=== PATIENT | male | born 1980 | race Hispanic/Latino ===

== ENCOUNTER 2017-10-02 12:25 | Emergency (ER) | payer OTHER ==
[2017-10-02] MEDS ORDERED: KETOROLAC TROMETHAMINE 60 MG/2 ML VIAL ONE (14:12)
== END 2017-10-02 14:54 | disposition home or self-care (01) ==
LOC: EDH 12:25
DX: S43.492A Other sprain of left shoulder joint, initial encounter (principal); I10 Essential (primary) hypertension; Z88.0 Allergy status to penicillin; Z88.8 Allergy status to other drugs, medicaments and biological substances; X50.9XXA Other and unspecified overexertion or strenuous movements or postures, initial encounter; Y93.89 Activity, other specified; Y92.098 Other place in other non-institutional residence as the place of occurrence of the external cause; Y99.8 Other external cause status
CPT/HCPCS: 73030; 96372; 99284; J1885

== ENCOUNTER → 2017-11-01 | Outpatient (CLI) | payer OTHER ==
[~2017-11-01] MED LIST: ALBUHFA IH; AZIT250T PO; CLIN300C3 PO; HYDR-309 PO; NAPR375T6 PO
== END ==
LOC: SHCH 07:46
PROVIDERS: ATTEND Internal Medicine Cardiovascular Disease
DX: R94.31 Abnormal electrocardiogram [ECG] [EKG] (principal); I10 Essential (primary) hypertension; E78.5 Hyperlipidemia, unspecified; R06.00 Dyspnea, unspecified
CPT/HCPCS: 93306

== ENCOUNTER 2018-01-19 08:27 | Day surgery (SDC) | payer OTHER ==
[2018-01-18 15:01] LABS: BASOPHILS % (AUTO) 0.7 % (0.0-5.0); EOSINOPHILS % (AUTO) 1.9 % (0.0-8.0); HEMATOCRIT 47.3 % (42-54); LYMPHOCYTES % (AUTO) 32.5 % (21.0-51.0); MEAN CORPUSCULAR HEMOGLOBIN 28.4 pg (27.0-33.0); MEAN CORPUSCULAR HGB CONC 34.6 g/dL (32.0-36.0); MEAN CORPUSCULAR VOLUME 82.1 fL (79-99); MONOCYTES % (AUTO) 10.3 % (3.0-13.0); NEUTROPHILS % (AUTO) 54.6 % (40.0-77.0); PLATELET COUNT (AUTO) 285 K/uL (130-400); RED BLOOD CELL COUNT(AUTO) 5.76 MIL/uL (4.50-6.20); WHITE BLOOD COUNT (AUTO) 6.7 K/uL (4.8-10.8)
[2018-01-18 15:02] VITALS: BP 138/80
[2018-01-18 15:09] LABS: CREATININE 1.1 mg/dL (0.5-1.5); POTASSIUM 4.2 mmol/L (3.5-5.1)
[2018-01-19] VITALS (14 sets, daily range): BP systolic 102–133; BP diastolic 59–86
[~2018-01-19] VITALS: Ht 175.3 cm; Wt 108.7 kg
[~2018-01-19 08:27] MED LIST changes: -ALBUHFA IH; -AZIT250T PO; -CLIN300C3 PO; +CLINDAMYCIN 900 MG/D5% WATER 50 ML IV ONE; -HYDR-309 PO; -NAPR375T6 PO
[2018-01-19] MEDS ORDERED: CEFAZOLIN SODIUM 1 GM VIAL ONE (09:49)
[2018-01-19] MEDS ORDERED: LACTATED RINGERS 1000ML 1,000 ML IV ONE (09:50)
[2018-01-19] MEDS ORDERED: CLINDAMYCIN 900 MG/D5% WATER 50 ML IV ONE (09:59)
[2018-01-19] MEDS ORDERED: OCTYL 2-CYANOACRYLATE 1 EACH TP ONE (12:34)
[2018-01-19] MEDS ORDERED: EPINEPHRINE 1 MG/ML 30ML VIAL IJ ONE (12:34)
[2018-01-19] MEDS ORDERED: DEXAMETHASONE SOD PHOSPHATE 10MG/ML 1ML VIAL ONE (12:39)
[2018-01-19] MEDS ORDERED: LIDOCAINE PF 2% 5ML ABBOJECT ONE (12:39)
[2018-01-19] MEDS ORDERED: GLYCOPYRROLATE 0.2 MG/ML 5 ML VIAL ONE (12:39)
[2018-01-19] MEDS ORDERED: NEOSTIGMINE 5MG/5ML SYR IV ONE (12:39)
[2018-01-19] MEDS ORDERED: ONDANSETRON HCL 4 MG/2 ML VIAL ONE ×2 (12:39→16:23)
[2018-01-19] MEDS ORDERED: PROPOFOL 10 MG/ML 20ML VIAL IV ONE (12:40)
[2018-01-19] MEDS ORDERED: MIDAZOLAM HCL 1 MG/ML 2ML VIAL ONE (12:40)
[2018-01-19] MEDS ORDERED: FENTANYL CITRATE PF 50 MCG/1 ML 2ML VIAL ONE ×2 (12:40→12:48)
[2018-01-19] MEDS ORDERED: VECURONIUM BROMIDE 10 MG ML IV ONE (12:43)
[2018-01-19] MEDS ORDERED: ROPIVACAINE 0.5% 5MG/ML 30ML IJ ONE (12:43)
[2018-01-19] MEDS ORDERED: EPHEDRINE SULFATE 50 MG/ML AMPULE ONE (13:33)
[2018-01-19] MEDS ORDERED: NAPR375T6 PO (15:51)
[2018-01-19] MEDS ORDERED: HYDR-309 PO (15:51)
[2018-01-19] MEDS ORDERED: CLIN300C3 PO (15:51)
[2018-01-19] MEDS ORDERED: MEPERIDINE-PF 25 MG/ML SYG ONE ×2 (15:58→16:11)
[2018-01-19] MEDS ORDERED: METOCLOPRAMIDE 10 MG/2 ML VIAL ONE (16:23)
== END 2018-01-19 17:40 | disposition home or self-care (01) ==
LOC: DAH 08:27
PROVIDERS: ATTEND Orthopaedic Surgery
DX: S46.212A Strain of muscle, fascia and tendon of other parts of biceps, left arm, initial encounter (principal); M75.102 Unspecified rotator cuff tear or rupture of left shoulder, not specified as traumatic; M75.42 Impingement syndrome of left shoulder; M19.012 Primary osteoarthritis, left shoulder; X58.XXXA Exposure to other specified factors, initial encounter; Y93.9 Activity, unspecified; Y92.89 Other specified places as the place of occurrence of the external cause; Y99.9 Unspecified external cause status; Z68.37 Body mass index [BMI] 37.0-37.9, adult; I10 Essential (primary) hypertension; Z87.891 Personal history of nicotine dependence; Z98.890 Other specified postprocedural states; Z82.49 Family history of ischemic heart disease and other diseases of the circulatory system; Z88.0 Allergy status to penicillin; Z88.8 Allergy status to other drugs, medicaments and biological substances; E66.01 Morbid (severe) obesity due to excess calories
CPT/HCPCS: 23430; 29824; 29826; 29827; 36415; 80048; 85025; A4218; A4565; A4649 ×3; A4930; A6204; C1713; J0171; J1100; J2001; J2175 ×2; J2250; J2405 ×2; J2704; J2710; J2765; J2795; J3010 ×2; J3490 ×4; J7120 ×2; J0690

== ENCOUNTER 2018-01-20 01:30 | Inpatient (IN) | payer OTHER ==
[~2018-01-20] VITALS: Ht 172.7 cm; Wt 108.9 kg
[~2018-01-20 01:30] MED LIST changes: +CLIN300C3 PO; -CLINDAMYCIN 900 MG/D5% WATER 50 ML IV ONE; +HYDR-309 PO; +NAPR375T6 PO
[2018-01-20 02:01] LABS: BASOPHILS % (AUTO) 0.3 % (0.0-5.0); HEMATOCRIT 48.1 % (42-54); LYMPHOCYTES % (AUTO) 4.2 % (21.0-51.0); MEAN CORPUSCULAR HEMOGLOBIN 28.5 pg (27.0-33.0); MEAN CORPUSCULAR HGB CONC 34.3 g/dL (32.0-36.0); MEAN CORPUSCULAR VOLUME 83.3 fL (79-99); MONOCYTES % (AUTO) 4.2 % (3.0-13.0); NEUTROPHILS % (AUTO) 91.3 % (40.0-77.0); PLATELET COUNT (AUTO) 275 K/uL (130-400); RED BLOOD CELL COUNT(AUTO) 5.77 MIL/uL (4.50-6.20); RED CELL DISTRIBUTION WIDTH 14.4 % (11.0-15.5); WHITE BLOOD COUNT (AUTO) 13.4 K/uL (4.8-10.8)
[2018-01-20] MEDS ORDERED: IPRATROPIUM/ALBUTEROL SULFATE 3 ML SOLUTION IH ONE (02:01)
[2018-01-20 02:11] LABS: CREATININE 1.1 mg/dL (0.5-1.5)
[2018-01-20 02:12] LABS: INR 0.98 (0.85-1.15); PROTHROMBIN TIME 10.3 SEC (9.6-11.6)
[2018-01-20 02:17] LABS: ALBUMIN 4.2 g/dL (3.5-5.0); BILIRUBIN,TOTAL 0.6 mg/dL (0.2-1.0); TOTAL PROTEIN, SERUM 8.5 g/dL (6.0-8.3)
[2018-01-20 02:33] LABS: CREATINE KINASE MB 4.2 ng/mL (0.5-3.6)
[2018-01-20] MEDS ORDERED: IOPAMIDOL-370 100 ML VIAL IV ONE (02:38)
[2018-01-20] MEDS ORDERED: CEFTRIAXONE SODIUM 1 GM ONE (02:40)
[2018-01-20] MEDS ORDERED: AZITHROMYCIN 250 MG TABLET PO ONE (02:42)
[2018-01-20] MEDS ORDERED: KETOROLAC TROMETHAMINE 30MG/ML ONE ×2 (04:26→04:38)
[2018-01-20] MEDS ORDERED: LIDOCAINE HCL-MPF 1% 2ML VIAL IVP PRN (05:45)
[2018-01-20] MEDS ORDERED: POTASSIUM CHLORIDE 10% ELIXIR 20 MEQ/15 ML UDCUP PO PRN (05:45)
[2018-01-20] MEDS ORDERED: DiphenhydrAMINE HCL 50 MG/ML VIAL IV PRN (05:45)
[2018-01-20] MEDS ORDERED: ACETAMINOPHEN 325 MG TAB PO PRN ×3 (05:45→06:00)
[2018-01-20] MEDS ORDERED: POTASSIUM CHLORIDE 20MEQ/100ML 100 ML IV PRN (05:45)
[2018-01-20] MEDS ORDERED: CEFTRIAXONE 1GM/D5W 50ML 50 ML IV SCH (05:45)
[2018-01-20] MEDS ORDERED: AZITHROMYCIN 500MG+NS 250ML 250 ML IV SCH ×2 (05:45→06:00)
[2018-01-20] MEDS ORDERED: POTASSIUM CHLORIDE 20 MEQ ERTAB PO PRN (05:45)
[2018-01-20] MEDS ORDERED: HYDRALAZINE HCL 20 MG/ML VIAL IV PRN (05:45)
[2018-01-20] MEDS ORDERED: CLONIDINE HCL 0.1 MG TABLET PO PRN (06:00)
[2018-01-20] MEDS ORDERED: GUAIFENESIN-DM 200/20 MG 10 ML PO PRN (06:00)
[2018-01-20] MEDS ORDERED: ONDANSETRON HCL MDV 20ML 2 MG/ML VIAL IVP PRN (06:00)
[2018-01-20 06:15] VITALS: BP 154/94
[2018-01-20] MEDS: IPRATROPIUM/ALBUTEROL SULFATE 3 ML SOLUTION IH SCH ×5 (06:57→22:53)
[2018-01-20 08:07] VITALS: BP 142/88
[2018-01-20] MEDS: FAMOTIDINE 20MG TAB 20 MG TAB PO SCH ×2 (08:35→20:21)
[2018-01-20] MEDS: HYDROCODONE/ACETAMINOPHEN 5/325 MG TAB PO PRN ×4 (08:35→21:28)
[2018-01-20] MEDS ORDERED: FAMOTIDINE 20MG TAB 20 MG TAB PO SCH (09:00)
[2018-01-20] MEDS: CLINDAMYCIN HCL 150 MG CAP PO SCH ×3 (10:55→20:21)
[2018-01-20 11:35] VITALS: BP 127/72
[2018-01-20 16:20] VITALS: BP 133/76
[2018-01-20] MEDS: NAPROXEN 250 MG TAB PO SCH ×2 (17:00→17:41)
[2018-01-20 21:14] VITALS: BP 151/75
[2018-01-20 21:20] VITALS: BP 127/72
[2018-01-21 00:47] VITALS: BP 116/64
[2018-01-21] MEDS ORDERED: CEFTRIAXONE SODIUM 1 GM IVP SCH (01:00)
[2018-01-21] MEDS: IPRATROPIUM/ALBUTEROL SULFATE 3 ML SOLUTION IH SCH ×3 (01:31→10:49)
[2018-01-21] MEDS ORDERED: AZITHROMYCIN 500MG+NS 250ML 250 ML IV SCH (02:00)
[2018-01-21] MEDS: HYDROCODONE/ACETAMINOPHEN 5/325 MG TAB PO PRN ×2 (04:45→08:45)
[2018-01-21 04:51] VITALS: BP 105/67
[2018-01-21 07:45] VITALS: BP 113/72
[2018-01-21] MEDS: FAMOTIDINE 20MG TAB 20 MG TAB PO SCH (08:43)
[2018-01-21] MEDS: CLINDAMYCIN HCL 150 MG CAP PO SCH (08:44)
[2018-01-21 10:21] LABS: BASOPHILS % (AUTO) 0.4 % (0.0-5.0); EOSINOPHILS % (AUTO) 0.8 % (0.0-8.0); HEMATOCRIT 44.4 % (42-54); LYMPHOCYTES % (AUTO) 28.4 % (21.0-51.0); MEAN CORPUSCULAR HEMOGLOBIN 28.7 pg (27.0-33.0); MEAN CORPUSCULAR HGB CONC 34.6 g/dL (32.0-36.0); MEAN CORPUSCULAR VOLUME 83.1 fL (79-99); MONOCYTES % (AUTO) 9.4 % (3.0-13.0); PLATELET COUNT (AUTO) 281 K/uL (130-400); RED BLOOD CELL COUNT(AUTO) 5.34 MIL/uL (4.50-6.20); RED CELL DISTRIBUTION WIDTH 14.2 % (11.0-15.5); WHITE BLOOD COUNT (AUTO) 10.8 K/uL (4.8-10.8)
[2018-01-21 10:34] LABS: POTASSIUM 3.7 mmol/L (3.5-5.1)
[2018-01-21] MEDS ORDERED: AZIT250T PO (11:03)
[2018-01-21] MEDS ORDERED: ALBUHFA IH (11:03)
[2018-01-21] MEDS ORDERED: AZITHROMYCIN 250 MG TABLET PO SCH (12:08)
== END 2018-01-21 12:37 | disposition home or self-care (01) | DRG 194 ==
LOC: EDH 01:30 → OBSVTOIN 04:49 → EDHIP 04:49 → 4AH 05:27
PROVIDERS: ADMIT Internal Medicine; ATTEND Internal Medicine
DX: J18.9 Pneumonia, unspecified organism (principal); J98.11 Atelectasis; I10 Essential (primary) hypertension; Z87.891 Personal history of nicotine dependence; Z88.0 Allergy status to penicillin; Z91.018 Allergy to other foods
CPT/HCPCS: 36415; 71045; 71275; 80048; 80053; 82550; 82553; 83880; 84484; 85025; 85378; 85610; 85730; 87804; 93005; 94640; 94664; J0360; J0456; J0696; J1885; Q9967

== ENCOUNTER 2018-09-07 07:50 | Day surgery (SDC) | payer OTHER ==
[2018-09-06 15:39] LABS: BASOPHILS % (AUTO) 0.7 % (0.0-5.0); EOSINOPHILS % (AUTO) 1.7 % (0.0-8.0); HEMATOCRIT 48.1 % (42-54); LYMPHOCYTES % (AUTO) 28.1 % (21.0-51.0); MEAN CORPUSCULAR HEMOGLOBIN 28.9 pg (27.0-33.0); MEAN CORPUSCULAR HGB CONC 33.9 g/dL (32.0-36.0); MEAN CORPUSCULAR VOLUME 85.4 fL (79-99); MONOCYTES % (AUTO) 9.7 % (3.0-13.0); NEUTROPHILS % (AUTO) 59.8 % (40.0-77.0); NUCLEATED RED BLOOD CELLS 0.1 % (0.0-0.19); PLATELET COUNT (AUTO) 212 K/uL (130-400); RED BLOOD CELL COUNT(AUTO) 5.64 MIL/uL (4.50-6.20); RED CELL DISTRIBUTION WIDTH 13.6 % (11.0-15.5); WHITE BLOOD COUNT (AUTO) 6.3 K/uL (4.8-10.8)
[2018-09-06 15:48] LABS: POTASSIUM 4.2 mmol/L (3.5-5.1)
[2018-09-06 15:53] VITALS: BP 151/90
[~2018-09-07] VITALS: Ht 175.3 cm; Wt 105.1 kg
[2018-09-07] VITALS (14 sets, daily range): BP systolic 107–146; BP diastolic 42–91
[2018-09-07] MEDS: CLINDAMYCIN 900 MG/D5% WATER 50 ML IV SCH ×2 (08:00→10:45)
[2018-09-07] MEDS ORDERED: LACTATED RINGERS 1000ML 1,000 ML IV ONE ×2 (08:29→13:22)
--- NOTE | 2018-09-07 08:42 | NUR ---
VALUABLES: CLOTHING, GLASSES, AND CELL PHONE GIVEN TO MOTHER.
[2018-09-07] MEDS ORDERED: ONDANSETRON HCL 4 MG/2 ML VIAL ONE ×2 (10:32→12:49)
[2018-09-07] MEDS ORDERED: LIDOCAINE PF 2% 5ML ABBOJECT ONE (10:32)
[2018-09-07] MEDS ORDERED: ROCURONIUM 10MG/1ML SYR 10 MG/ML ML ONE (10:32)
[2018-09-07] MEDS ORDERED: MIDAZOLAM HCL 1 MG/ML 2ML VIAL ONE (10:32)
[2018-09-07] MEDS ORDERED: GLYCOPYRROLATE 1 MG/5 ML SYRINGE ONE (10:32)
[2018-09-07] MEDS ORDERED: DEXAMETHASONE SOD PHOSPHATE 10MG/ML 1ML VIAL ONE (10:32)
[2018-09-07] MEDS ORDERED: NEOSTIGMINE 5MG/5ML SYR IV ONE (10:32)
[2018-09-07] MEDS ORDERED: PROPOFOL 10 MG/ML 20ML VIAL IV ONE (10:32)
[2018-09-07] MEDS ORDERED: FENTANYL CITRATE PF 50 MCG/1 ML 2ML VIAL ONE ×2 (10:33→10:50)
[2018-09-07] MEDS ORDERED: HYDR-4457 PO (12:09)
[2018-09-07] MEDS ORDERED: METOCLOPRAMIDE 10 MG/2 ML VIAL ONE (13:21)
--- NOTE | 2018-09-07 15:05 | NUR ---
PATIENT AWAKE ALERT ,NO COMPLAINTS OF PAIN ,NO NAUSEA,,INSTRUCTIONS GIVEN TO MOM AND PATIENT , VERBALIZE UNDERSTANDING,,,,TO CAR VIA W/C ACCOMPANIED BY MOM.
--- NOTE | 2018-09-07 16:55 | NUR ---
PATIENT MOTHER CAME BACK TO MAKE US AWARE THAT PRESCRIPTION GIVEN BY DR. MILLER HAD DATE OF 09/07/2017 AND PHARMACY WOULD NOT TAKE IT. CALLED DR. MILLER, HE STATED HE WOULD COME IN TO CORRECT PRESCRIPTION. DR. MILLER IN TO CORRECT PRESCRIPTION,. PRESCRIPTION WAS CORRECTED BY DR. MILLER, CALLED PHARMACY TO VERIFY THEY WOULD ACCEPT PRESCRIPTION WITH CORRECTIONS MADE BY . [facility] PH[facility]IST STATED THEY WOULD TAKE MANUAL CORRECTION MADE BY .
== END 2018-09-07 15:05 | disposition home or self-care (01) ==
LOC: DAH 07:50
PROVIDERS: ATTEND Orthopaedic Surgery
DX: M25.512 Pain in left shoulder (principal); Z98.890 Other specified postprocedural states; Z79.899 Other long term (current) drug therapy; Z87.891 Personal history of nicotine dependence; Z88.8 Allergy status to other drugs, medicaments and biological substances; Z88.0 Allergy status to penicillin
CPT/HCPCS: 23430; 36415; 80048; 85025; A4565; A4649; A4930; A6204; C1713; J1100; J2001; J2250; J2405 ×2; J2704; J2710; J2765; J3010 ×2; J3490 ×2; J7120 ×2

== ENCOUNTER 2023-03-21 15:43 | Emergency (ER) | payer OTHER ==
[~2023-03-21] VITALS: Ht 172.7 cm; Wt 95.3 kg
[~2023-03-21 15:43] MED LIST changes: -CLIN300C3 PO; -HYDR-309 PO; +HYDR-4457 PO; -NAPR375T6 PO
[2023-03-21] MEDS ORDERED: BACL5TAB PO (22:49)
[2023-03-21] MEDS ORDERED: IBUP-2077 PO (22:49)
[2023-03-21 22:56] VITALS: BP 162/84
[2023-03-21] MEDS ORDERED: KETOROLAC 15MG/ML VIAL (15MG/ML) IM ONE (23:00)
== END 2023-03-21 23:39 | disposition home or self-care (01) ==
LOC: EDH 15:43
DX: S16.1XXA Strain of muscle, fascia and tendon at neck level, initial encounter (principal); I10 Essential (primary) hypertension; Z79.899 Other long term (current) drug therapy; Z98.890 Other specified postprocedural states; Z88.0 Allergy status to penicillin; Z88.6 Allergy status to analgesic agent; X58.XXXA Exposure to other specified factors, initial encounter; Y93.89 Activity, other specified; Y92.89 Other specified places as the place of occurrence of the external cause; Y99.8 Other external cause status
CPT/HCPCS: 99283; 72040; 96372; J1885

== ENCOUNTER 2024-11-02 18:53 | Emergency (ER) | payer OTHER ==
[~2024-11-02] VITALS: Ht 172.7 cm; Wt 106.6 kg
[~2024-11-02 18:53] MED LIST changes: +BACL5TAB PO; +IBUP-2077 PO
--- NOTE | 2024-11-02 19:06 | ERN ---
ED Note History of Present Illness Stated Complaint: URINATING BLOOD Chief Complaint: Blood in Urine: Time Seen by MD: 18:58 Time Seen by Midlevel: 19:05 Dictation: Mr Hermosillo is a 44 year old male with history of hypertension (untreated) and obesity who presented to the emergency department for evaluation of blood in urine. He reports one week of blood in his urine. He states initially he just had intermittent pink urine. Now he has had increased bleeding with clots. He initially stated there was no pain with urination but now states he has some stinging at the end of his stream. He states he has been avoiding taking NSAIDs due to previous problems with bleeding. He states he has had some back pain but attributed to chronic pain secondary to injury. He denies having fever, chills, shortness of breath, cough, chest pain, palpitations, abdominal pain, nausea, vomiting, diarrhea, hematemesis, melena, hematochezia, headache, or dizziness. Allergies: Coded Allergies: Penicillins (Unverified Allergy, Severe, ANAPHYLAXIS, 01/18/18) naproxen (Unverified Allergy, Unknown, 01/20/18) Uncoded Allergies: cheese cake (Allergy, Severe, ANAPHYLAXIS, 01/18/18) Emergency Care [employer]: None Home Meds Active Scripts Baclofen (Baclofen) 5 Mg Tablet, 5 MG PO TID for pain, #21 TAB Prov:JACKELINE ROLLE 03/21/23 Ibuprofen (Ibuprofen 800 mg Tab) 800 Mg Tab, 800 MG PO Q8H PRN for fever or pain, #30 TAB 0 Refills Prov:JACKELINE ROLLE 03/21/23 Hydrocodone/Acetaminophen ([place] 5-325 Tablet) 1 Each Tablet, 1-2 EACH PO Q6HPRN PRN for pain, #60 TAB Prov:ANTONIO MILLER MD 09/07/18 Past Medical History Past Medical History: Hypertension, Other (obesity) Surgical History: Other Surgical History Other: LT SHOULDER SURGERY 2018 PSYCH History: no pertinent psych hx Social History: Negative, Lives with family RN Note Reviewed/Agreed w/PFSH: Yes Review of System Dictation REVIEW OF SYSTEMS: CONSTITUTIONAL: Patient denies fevers, chills, sweats and weight changes. EYES: Patient denies any visual symptoms. EARS, NOSE, AND THROAT: No difficulties with hearing. No symptoms of rhinitis or sore throat. CARDIOVASCULAR: Patient denies chest pains, palpitations, orthopnea and paroxysmal nocturnal dyspnea. RESPIRATORY: No dyspnea on exertion, no wheezing or cough. GI: No nausea, vomiting, diarrhea, constipation, abdominal pain, hematochezia or melena. : No urinary hesitancy or dribbling. No nocturia or urinary frequency. No abnormal urethral discharge. Reports painless bleeding with urination. States he has had this for the last week. He states now bleeding is increased and he has noted some clots. MUSCULOSKELETAL: No myalgias or arthralgias. NEUROLOGIC: No chronic headaches, no seizures. Patient denies numbness, tingling or weakness. PSYCHIATRIC: Patient denies problems with mood disturbance. No problems with anxiety. ENDOCRINE: No excessive urination or excessive thirst. DERMATOLOGIC: Patient denies any rashes or skin changes. Initial Vital Sign VS Vital Signs Date Time Temp Pulse Resp B/P (MAP) Pulse Ox O2 Delivery O2 Flow Rate FiO2 11/02/24 18:56 98.8 94 16 132/99 97 Room Air 11/02/24 20:51 0 21 Physical Exam Dictation Vital signs: Reviewed. Afebrile. Constitutional: No acute distress. Non-toxic appearing. Head/Face: Normocephalic, atraumatic. Eyes: Periorbital areas with no swelling, redness, or edema. Lids and lashes are normal. Conjunctival injection is absent. Sclera anicteric. Pupils equal, round, reactive to light. ENT: Pinnas intact and no signs of trauma or erythema. Ear canals clear and no discharge. TMs no erythema. No nasal discharge or bleeding noted. Oropharynx with no exudate, redness, swelling, masses, exudates, or evidence of obstruction. Uvula midline. Mucous membranes moist. Neck: Trachea midline, no masses palpated, and no cervical lymphadenopathy. No swelling. Supple, full range of motion. Chest/Axilla: No tenderness, no crepitus, no paradoxical movement, no retractions. Cardiovascular: Regular rate, regular rhythm, no murmur, no gallops. Symmetric pulses. No peripheral edema. Normotensive Respiratory: Respirations even and unlabored. Lung sounds clear; no wheezes, rales or rhonchi. Room air SpO2 97% Gastrointestinal: Obese. No distention is appreciated. Bowel sounds are normal. No mass or organomegaly . There is no tenderness. No rebound. No rigidity. No voluntary or involuntary guarding. No Brannon's sign. : Urine pink. Negative CVA tenderness bilaterally. Neurological: Normal speech, gross motor function intact, gross sensory functio n intact. No focal weakness/Paresthesia. Musculoskeletal/Extremities: All extremities have full range of motion, no pain or tenderness on palpation. Symmetric pulses. Integumentary: Intact. Skin is normal color, warm and dry. Cap refill less than 3 seconds. Results (Laboratory/Radiology) Laboratory/Radiology Laboratory Tests Test 11/02/24 19:14 11/02/24 19:21 White Blood Count 6.8 K/uL (4.8-10.8) Red Blood Count 5.82 MIL/uL (4.50-6.20) Hemoglobin 16.8 g/dL (14.0-18.0) Hematocrit 49.5 % (42-54) Mean Corpuscular Volume 85.1 fL (79-99) Mean Corpuscular Hemoglobin 28.9 pg (27.0-33.0) Mean Corpuscular Hemoglobin Concent 33.9 g/dL (32.0-36.0) Red Cell Distribution Width 12.8 % (11.0-15.5) Platelet Count 281 K/uL (130-400) Mean Platelet Volume 9.6 fL (7.5-10.5) Immature Granulocyte % (Auto) 0.4 % (0-1) Neutrophils (%) (Auto) 55.2 % (40.0-77.0) Lymphocytes (%) (Auto) 31.1 % (21.0-51.0) Monocytes (%) (Auto) 11.3 % (3.0-13.0) Eosinophils (%) (Auto) 1.6 % (0.0-8.0) Basophils (%) (Auto) 0.4 % (0.0-5.0) Neutrophils # (Auto) 3.7 K/uL (1.8-7.7) Lymphocytes # (Auto) 2.1 K/uL (1.0-4.8) Monocytes # (Auto) 0.8 K/uL (0.1-1.0) Eosinophils # (Auto) 0.11 K/uL (0.00-0.70) Basophils # (Auto) 0.03 K/uL (0.00-0.20) Absolute Immature Granulocyte (auto 0.03 K/uL (0-1) Nucleated Red Blood Cells 0.0 % (0.0-0.19) Sodium Level 135 mmol/L (136-145) L Potassium Level 4.3 mmol/L (3.5-5.1) Chloride Level 102 mmol/L (101-111) Carbon Dioxide Level 32 mmol/L (21-32) Blood Urea Nitrogen 13 mg/dL (7-18) Creatinine 1.1 mg/dL (0.5-1.3) Glomerular Filtration Rate Calc 86 mL/min (>90) Random Glucose 85 mg/dL (70-105) Total Calcium 8.8 mg/dL (8.5-10.1) Urine Color YELLOW (YELLOW) Urine Appearance CLOUDY (CLEAR) H Urine pH 6.0 (5.0-8.0) Urine Specific [place] 1.029 (1.001-1.031) Urine Protein 10 mg/dL (NEGATIVE) H Urine Glucose (UA) NEGATIVE mg/dL (NEGATIVE) Urine Ketones 5 mg/dL (NEGATIVE) H Urine Occult Blood LARGE (NEGATIVE) H Urine Nitrate NEGATIVE (NEGATIVE) Urine Bilirubin NEGATIVE mg/dL (NEGATIVE) Urine Urobilinogen 2.0 mg/dL (0.2-1.0) H Urine Leukocyte Esterase NEGATIVE Brenda/uL Urine RBC >100 /HPF (0-1) H Urine WBC 2-5 /HPF (0-1) H Urine Bacteria RARE /HPF (None Seen) Labs Reviewed?: Yes CT Scan Comment: PATIENT: YURI HERMOSILLO MR#: [id number] : 1980 SEX: M AGE: 44 LOCATION: [facility] ORDER 53 STATUS: [employer] REPORT#: [id number] SERVICE 52 REASON: hematuria/painless ORDERING PHYSICIAN: LEXI CHUNG NP PROCEDURE: ABD PEL W - CT ABDOMEN/PELVIS W/CONTRAST CT ABDOMEN/PELVIS W/CONTRAST CLINICAL HISTORY: hematuria/painless COMPARISON: 06/15/2018 TECHNIQUE: Sequential axial images of abdomen and pelvis with 100 mL of Omnipaque 350 IV contrast with sagittal and coronal reconstructions. CT was performed with one or more of the following dose reduction techniques: automated exposure control, adjustment of the mA and/or kV according to patient size, or use of iterative reconstruction technique. FINDINGS: There are small nodular infiltrates demonstrated in the right middle and right lower lobe. Liver and spleen are unremarkable. The gallbladder appears contracted. The pancreas and adrenal glands are unremarkable. The kidneys and bladder are unremarkable. The prostate gland is in the upper limits of normal in size. There is no identified bowel obstruction. There are scattered diverticuli throughout the colon. There is questionable mild stranding adjacent to the sigmoid colon demonstrated best on image 48 of series 6. There is no free air or free fluid. There is no bulky abdominal or retroperitoneal lymphadenopathy. The appendix is normal. The aorta is intact with no dissection flap or aneurysmal dilatation. The bony structures within normal limits. IMPRESSION: Small nodular infiltrates in the right lower and right middle lobe recommend clinical correlation and follow-up study to ensure resolution or stability. Mild acute sigmoid diverticulitis. Borderline prostate size. The kidneys and bladder are unremarkable. DICTATED BY: AVNI YU DO DATE: 11/02/242127 ELECTRONICALLY SIGNED BY: AVNI YU DO DATE: 11/02/242133 ED Course ED Course Orders Procedure Category Date Status Time Cbc With Differential LAB 11/02/24 Complete 19:04 Basic Metabolic Panel LAB 11/02/24 Complete 19:04 Urinalysis Profile LAB 11/02/24 Complete 19:04 Ct Abdomen/Pelvis CT 11/02/24 Resulted W/Contrast 20:53 Iohexol (Omnipaque) PHA 11/02/24 Complete 20:58 Current Medications Medications (Trade) Dose Ordered Sig/Rd Route PRN Reason Start Time Stop Time Status Last Admin Dose Admin Iohexol (Omnipaque) 35,000 mg STK-MED ONCE IV 11/02/24 20:58 11/02/24 20:59 DC Vital Signs Date Time Temp Pulse Resp B/P (MAP) Pulse Ox O2 Delivery O2 Flow Rate FiO2 11/02/24 20:51 98.8 92 16 130/96 98 Room Air* 0 21 11/02/24 18:56 98.8 94 16 132/99 97 Room Air Uneventful ED course. Laboratory findings as noted below. No elevation of WBCs. H&H are stable. Na 135, creatinine is within normal limits at 1.1 and GFR is 86. UA is cloudy; positive ketones and large blood. CT scan of the abdomen and pelvis with IV contrast revealed mild acute sigmoid diverticulitis, borderline prostate size and kidney/bladder is are unremarkable. Also noted, small nodular infiltrates in the right lower lobe and right middle lobe. Patient advised of findings and will refer to urologist. He will follow up with his PCP regarding infiltrates and diverticulitis. Will start on Cipro and Flagyl. Medical Decision Making MDM MDM: Differential diagnosis: UTI, anemia secondary to hemorrhage, prostatitis Rationale: Tests considered and ordered secondary to shared decision making include: Lab, CT Previous outside records reviewed: Old ER visits. Risk of complication and/or morbidity or mortality of patient management: None Medications-Per medication reconciliation Need for hospitalization: Patient does not meet criteria for hospitalization. Need for emergency major/minor surgery: No There are no social concerns with this patient. Prescription drug management: Cipro, Flagyl Prescriptions will include symptomatic care Patient's prior external medical records from other ER visits were reviewed by me as indicated. Prior testing and results from previous visits were reviewed. Prior tests were taken into account with medical decision making and resource utilization, independent historian/historians were used to obtain complete medic al history. I independently interpreted the test that were performed, results were reviewed by me and considered findings on radiology if ordered. Medical management and examination interpretation discussions were had by me with other qualified healthcare professionals as indicated for the patient's care. DX & DISP Disposition: Discharge Departure Impression: Primary Impression: Hematuria Additional Impressions: Diverticulitis, Pulmonary infiltrate Condition: Stable Scripts Levofloxacin (Levaquin 750Mg Tabs) 750 Mg Tablet 500 MG PO DAILY for 10 Days, #10 TAB 0 Refills Prov: LEXI CHUNG GROCERY CLERK SELLING 11/02/24 Metronidazole (Metronidazole) 500 Mg Tablet 1 TAB PO BID for 7 Days, #14 TAB 0 Refills Prov: LEXI CHUNG GROCERY CLERK SELLING 11/02/24 Additional Instructions: Rest. Drink plenty of fluids. Start antibiotics Levaquin 500 mg daily times 10 days as well as Flagyl 500 mg twice daily for seven days. I please follow up as soon as possible with urologist, Dr. Barbara Bradford. You will need to follow up with your primary care provider for follow up diverticulitis as well as lung infiltrates. May take [id number] Tylenol as needed for discomfort. Avoid NSAIDs. Return to the emergency department for any increased bleeding or concerns. Referrals: EKNNY VENTURA MD (PCP) BARBARA BRADFORD MD Time of Disposition: 22:11 LEXI CHUNG NP Nov 02, 2024 19:06
--- NOTE | 2024-11-02 19:11 | NUR ---
UA CUP PROVIDED
[2024-11-02 19:25] LABS: BASOPHILS # (AUTO) 0.03 K/uL (0.00-0.20); BASOPHILS % (AUTO) 0.4 % (0.0-5.0); EOSINOPHILS # (AUTO) 0.11 K/uL (0.00-0.70); EOSINOPHILS % (AUTO) 1.6 % (0.0-8.0); HEMATOCRIT 49.5 % (42-54); IMMATURE GRANULOCYTE ABSOLUTE 0.03 K/uL (0-1); LYMPHOCYTES # (AUTO) 2.1 K/uL (1.0-4.8); LYMPHOCYTES % (AUTO) 31.1 % (21.0-51.0); MEAN CORPUSCULAR HEMOGLOBIN 28.9 pg (27.0-33.0); MEAN CORPUSCULAR HGB CONC 33.9 g/dL (32.0-36.0); MEAN CORPUSCULAR VOLUME 85.1 fL (79-99); MONOCYTES # (AUTO) 0.8 K/uL (0.1-1.0); MONOCYTES % (AUTO) 11.3 % (3.0-13.0); NEUTROPHILS # (AUTO) 3.7 K/uL (1.8-7.7); NEUTROPHILS % (AUTO) 55.2 % (40.0-77.0); PLATELET COUNT (AUTO) 281 K/uL (130-400); RED BLOOD CELL COUNT(AUTO) 5.82 MIL/uL (4.50-6.20); RED CELL DISTRIBUTION WIDTH 12.8 % (11.0-15.5); WHITE BLOOD COUNT (AUTO) 6.8 K/uL (4.8-10.8)
[2024-11-02 19:33] LABS: CREATININE 1.1 mg/dL (0.5-1.3); POTASSIUM 4.3 mmol/L (3.5-5.1)
[2024-11-02 20:23] LABS: ADD UA MICROSCOPIC YES; APPEARANCE,URINE CLOUDY (CLEAR); BILIRUBIN,URINE NEGATIVE (NEGATIVE); COLOR,URINE YELLOW (YELLOW); GLUCOSE, URINE (UA) NEGATIVE (NEGATIVE); KETONES,URINE 5 mg/dL (NEGATIVE); LEUKOCYTE ESTERASE ,URINE NEGATIVE Leu/uL (NEGATIVE); NITRATE,URINE NEGATIVE (NEGATIVE); OCCULT BLOOD,URINE LARGE (NEGATIVE); PROTEIN,URINE 10 mg/dL (NEGATIVE)
[2024-11-02 20:26] LABS: BACTERIA,URINE RARE /HPF (None Seen); MUCUS,URINE RARE LPF (None Seen); RBC,URINE >100 /HPF (0-1)
[2024-11-02] MEDS ORDERED: IOHEXOL 350 MG/ML 100ML INFUS..BTL IV ONE (20:58)
--- NOTE | 2024-11-02 21:34 | HMCIMG ---
CT ABDOMEN/PELVIS W/CONTRAST CLINICAL HISTORY: hematuria/painless COMPARISON: 06/15/2018 TECHNIQUE: Sequential axial images of abdomen and pelvis with 100 mL of Omnipaque 350 IV contrast with sagittal and coronal reconstructions. CT was performed with one or more of the following dose reduction techniques: automated exposure control, adjustment of the mA and/or kV according to patient size, or use of iterative reconstruction technique. FINDINGS: There are small nodular infiltrates demonstrated in the right middle and right lower lobe. Liver and spleen are unremarkable. The gallbladder appears contracted. The pancreas and adrenal glands are unremarkable. The kidneys and bladder are unremarkable. The prostate gland is in the upper limits of normal in size. There is no identified bowel obstruction. There are scattered diverticuli throughout the colon. There is questionable mild stranding adjacent to the sigmoid colon demonstrated best on image 48 of series 6. There is no free air or free fluid. There is no bulky abdominal or retroperitoneal lymphadenopathy. The appendix is normal. The aorta is intact with no dissection flap or aneurysmal dilatation. The bony structures within normal limits. IMPRESSION: Small nodular infiltrates in the right lower and right middle lobe recommend clinical correlation and follow-up study to ensure resolution or stability. Mild acute sigmoid diverticulitis. Borderline prostate size. The kidneys and bladder are unremarkable.
[2024-11-02] MEDS ORDERED: LEVO750T68 PO (22:09)
[2024-11-02] MEDS ORDERED: METR-172 PO (22:09)
[2024-11-02 22:27] VITALS: BP 130/85; PULSE 86; RESP 16; TEMP 98.3; O2SAT 98
== END 2024-11-02 22:35 | disposition home or self-care (01) ==
LOC: EDH 18:53
DX: R31.9 Hematuria, unspecified (principal); K57.32 Diverticulitis of large intestine without perforation or abscess without bleeding; R91.8 Other nonspecific abnormal finding of lung field; E66.9 Obesity, unspecified; I10 Essential (primary) hypertension; Z79.899 Other long term (current) drug therapy; Z88.0 Allergy status to penicillin; Z88.6 Allergy status to analgesic agent; Z68.35 Body mass index [BMI] 35.0-35.9, adult
CPT/HCPCS: 99285; 74177; 80048; 85025; 81001; 36415; Q9967